=== PATIENT | female | born 1955 | race Hispanic/Latino ===

== ENCOUNTER 2023-05-07 07:51 | Day surgery (SDC) | payer BC, MEDICARE ==
[2023-05-03 12:32] LABS: BASOPHILS # (AUTO) 0.07 K/uL (0.00-0.20); BASOPHILS % (AUTO) 1.4 % (0.0-5.0); EOSINOPHILS % (AUTO) 4.1 % (0.0-8.0); HEMATOCRIT 37.6 % (36-48); IMMATURE GRANULOCYTE ABSOLUTE 0.02 K/uL (0-1); LYMPHOCYTES # (AUTO) 1.8 K/uL (1.0-4.8); LYMPHOCYTES % (AUTO) 36.1 % (21.0-51.0); MEAN CORPUSCULAR HEMOGLOBIN 31.3 pg (27.0-33.0); MEAN CORPUSCULAR VOLUME 94.9 fL (79-99); MONOCYTES # (AUTO) 0.4 K/uL (0.1-1.0); NEUTROPHILS # (AUTO) 2.5 K/uL (1.8-7.7); PLATELET COUNT (AUTO) 307 K/uL (130-400); RED BLOOD CELL COUNT(AUTO) 3.96 MIL/uL (4.00-5.50); RED CELL DISTRIBUTION WIDTH 12.6 % (11.0-15.5); WHITE BLOOD COUNT (AUTO) 4.9 K/uL (4.8-10.8)
[2023-05-03 12:42] LABS: ADD UA MICROSCOPIC NO; APPEARANCE,URINE CLEAR (CLEAR); BILIRUBIN,URINE NEGATIVE (NEGATIVE); COLOR,URINE COLORLESS (YELLOW); GLUCOSE, URINE (UA) NEGATIVE (NEGATIVE); KETONES,URINE NEGATIVE (NEGATIVE); LEUKOCYTE ESTERASE ,URINE NEGATIVE Leu/uL (NEGATIVE); NITRATE,URINE NEGATIVE (NEGATIVE); OCCULT BLOOD,URINE NEGATIVE (NEGATIVE); PROTEIN,URINE NEGATIVE (NEGATIVE); UROBILINOGEN,URINE 0.2 mg/dL (0.2-1.0)
[2023-05-03 12:44] LABS: INR < 0.93 (0.85-1.15); PROTHROMBIN TIME 10.7 SEC (9.6-11.6)
[2023-05-03 12:45] LABS: PARTIAL THROMBOPLASTIN TIME 25.7 SEC (26.3-35.5)
[2023-05-03 12:56] VITALS: BP 142/69; PULSE 55; RESP 16
[2023-05-03 13:00] LABS: ALBUMIN 3.9 g/dL (3.5-5.0); BILIRUBIN,TOTAL 0.5 mg/dL (0.2-1.0); CREATININE 0.9 mg/dL (0.5-1.5); POTASSIUM 4.5 mmol/L (3.5-5.1); TOTAL PROTEIN, SERUM 7.5 g/dL (6.0-8.3)
[~2023-05-07] VITALS: Ht 149.9 cm; Wt 47.8 kg
[2023-05-07] VITALS (17 sets, daily range): BP systolic 114–150; BP diastolic 59–80; PULSE 44–74; RESP 14–18
[2023-05-07] MEDS ORDERED: LACTATED RINGERS 1000ML 1,000 ML IV ONE (08:48)
[2023-05-07] MEDS: CEFAZOLIN SODIUM 2 GM VIAL ONE ×2 (09:02→10:50)
[2023-05-07] MEDS ORDERED: LIDOCAINE PF 100MG/5ML (2%) SYRINGE 5ML ONE (10:17)
[2023-05-07] MEDS ORDERED: ROCURONIUM BROMIDE 10MG/1ML 5ML VL ONE (10:18)
[2023-05-07] MEDS ORDERED: FENTANYL CITRATE PF 50 MCG/1 ML 2ML VIAL ONE (10:18)
[2023-05-07] MEDS ORDERED: PROPOFOL 10 MG/ML 20ML VIAL IV ONE (10:18)
[2023-05-07] MEDS ORDERED: MIDAZOLAM HCL 1 MG/ML 2ML VIAL ONE (10:18)
[2023-05-07] MEDS ORDERED: DEXAMETHASONE SOD PHOSPHATE 4 MG/ML 1ML VIAL ONE (10:26)
[2023-05-07] MEDS ORDERED: ONDANSETRON 4MG INJ ONE (10:26)
[2023-05-07] MEDS ORDERED: PHENYLEPHRINE HCL 10 MG/ML 1ML VIAL IV ONE (10:26)
[2023-05-07] MEDS ORDERED: BUPIVACAINE/PF 0.5% 30ML VIAL ONE (11:04)
[2023-05-07] MEDS ORDERED: LIDOCAINE HCL 2% PF 20 ML JEL DISP.SYRIN MM ONE (11:41)
[2023-05-07] MEDS ORDERED: NEOSTIGMINE 5MG/5ML SYR IV ONE (11:46)
[2023-05-07] MEDS ORDERED: GLYCOPYRROLATE 1 MG/5 ML SYRINGE ONE (11:46)
== END 2023-05-07 13:45 | disposition home or self-care (01) ==
LOC: DAH 07:51
PROVIDERS: ATTEND Student in an Organized Health Care Education/Training Program
DX: K64.2 Third degree hemorrhoids (principal); E78.5 Hyperlipidemia, unspecified; K62.5 Hemorrhage of anus and rectum; Z88.8 Allergy status to other drugs, medicaments and biological substances; Z98.890 Other specified postprocedural states
CPT/HCPCS: 80053; 85025; 85610; 85730; 81003; 36415; 93005; 46260; 88304; A6260; J1100; A4663; A4649 ×2; J7120; J3010; J3490 ×2; J2710; J2001; J2250; J2704; J2405; J0665; J2371; J0690; A4215; A4223; A4222; A4221; A4600